=== PATIENT | female | born 1990 ===

== ENCOUNTER 2022-04-25 08:49 | Outpatient (CLI) | payer BC ==
[2022-04-25 09:51] LABS: BHCG - Serum Negative (NEGATIVE); Pregs Control Background? CLEAR/WHITE (CLR/WHITE); Pregs Control Bar Appear? YES (CONTROL BAR)
[2022-04-25] MEDS ORDERED: Iopamidol 370 76% 100 ML VIAL ONE (10:33)
== END 2022-04-25 08:50 | disposition home or self-care (01) ==
LOC: CT 08:49
PROVIDERS: ATTEND Registered Nurse Perinatal
DX: R31.9 Hematuria, unspecified (principal); Z32.00 Encounter for pregnancy test, result unknown
CPT/HCPCS: 74178; 84703; Q9967